=== PATIENT | female | born 1940 | race Caucasian/White ===

== ENCOUNTER 2021-02-04 11:31 | Day surgery (SDC) | payer MEDICARE ==
[~2021-02-04] VITALS: Ht 170.2 cm; Wt 100.0 kg
[2021-02-04 12:12] LABS: BASOPHILS 1.5 % (0-2); EOSINOPHILS 2.3 % (0-7); HEMATOCRIT 39.8 % (36.0-48.0); HEMOGLOBIN 12.7 g/dL (12-16); LYMPHOCYTES 26.7 % (15-50); MCH 27.2 pg (26.0-34.0); MCHC 31.8 g/dL (31.0-37.0); MCV 85.4 fL (80.0-100.0); MEAN PLATELET VOLUME 7.7 fL (7.4-10.4); MONOCYTES 6.6 % (2-11); NEUTROPHILS 62.9 % (40-80); PLATELET COUNT 514 10x3/uL (130-400); RBC 4.66 10x6/uL (4.00-5.40); WBC 9.8 10x3/uL (4.8-10.8)
[2021-02-04 12:17] LABS: ANION GAP 13.7 mmol/L (8-16); CALCIUM 9.4 mg/dL (8.5-10.1); CARBON DIOXIDE 27.5 mmol/L (21.0-32.0); POTASSIUM - SERUM 4.2 mmol/L (3.5-5.1)
[2021-02-04] MEDS ORDERED: CARAFATE1 G PO (15:49)
[2021-02-04] MEDS ORDERED: LEVOTHYROXINE100 MCG PO (15:49)
[2021-02-04] MEDS ORDERED: CELEXA40 MG PO (15:50)
[2021-02-04] MEDS ORDERED: HYDROCODONE-AC1 EAC2 PO (15:50)
[2021-02-04] MEDS ORDERED: METOLAZONE5 MG PO (15:50)
[2021-02-04] MEDS ORDERED: BREO ELLIPTA 11 EACH INH (15:50)
[2021-02-04] MEDS ORDERED: GABAPENTIN300 MG PO (15:50)
[2021-02-04] MEDS ORDERED: PROTONIX40 MG PO (15:50)
[2021-02-04] MEDS ORDERED: ALBUTEROL SULF8.5 GM INH (15:51)
[2021-02-04] MEDS ORDERED: LASIX80 MG PO (15:51)
[2021-02-04] MEDS ORDERED: SINGULAIR10 MG PO (15:51)
[2021-02-04] MEDS ORDERED: MYCOSTATIN 15 G15 GM TOPICAL (15:51)
[2021-02-04] MEDS ORDERED: GLUCOPHAGE850 MG PO (15:51)
[2021-02-04 16:05] VITALS: BP 149/59; Ht 170.2 cm; Wt 100.0 kg
--- NOTE | 2021-02-04 18:56 | NUR ---
1730 RECEIVED FROM PROCEDURE TO PHASE 11 RECOVERY. IV INFUSING WELL, PT AWAKE, ALERT. LIQUIDS GIVEN 1745 PATIENT WITHOUT CO VOICED. DAUGHTER AT BEDSIDE. TOLERATING LIQUIDS WELL, DENIES NAUSEA. 1810 IV REMOMVED WITH CATH INTACT. DISCHARGE INSTRUCTION REVIEWED W PATIENT AND DAUGHTER, VERBALIZED UNDERSTANDING.
--- NOTE | 2021-02-05 09:09 | OP ---
PATIENT NAME: AIRAM DURAND MEDICAL RECORD: [id number] :38 LOCATION:[facility] ADMISSION DATE: SURGEON: ANDREA LUNDBERG MD DATE OF OPERATION: 02/04/2021 PROCEDURE: Upper endoscopy. PREOPERATIVE DIAGNOSIS: Dysphagia. MEDICATION: Propofol per anesthesia. Upper endoscopy was performed. The endoscope was advanced through the mouth and advanced to the second part of the duodenum. The proximal and mid esophagus were normal. In the distal esophagus was an esophageal stricture. This was dilated with an 18, 19, 20 mm balloon. In the gastric body was erythema consistent with gastritis. Random gastric biopsies were taken. The duodenum was normal. The patient tolerated the procedure well. FINAL DIAGNOSES: Esophageal stricture dilated with an 18, 19, 20 mm balloon. Gastritis, biopsies taken. Duodenum normal. PLAN: Check histology results. Advance diet. Return to GI office. Of note, this patient's medication list states she is on Protonix; however, she denies that she is on this. Therefore, I will write a prescription today and send it with her. TRANSINT:[id number] Voice Confirmation ID: [id number] DOCUMENT ID: [id number] ANDREA LUNDBERG MD at 0909 CC: [id number] DICTATION DATE: 02/04/211715 [employer] MACHINE OPERATOR: 02/04/211926 [facility] [place] 02/04/21 [facility] [address] [place] [address]
== END 2021-02-04 18:10 | disposition home or self-care (01) ==
LOC: D.OPS 11:31
PROVIDERS: Anesthesiology; ATTEND Internal Medicine Gastroenterology
DX: R13.10 Dysphagia, unspecified (principal); K22.2 Esophageal obstruction; J44.9 Chronic obstructive pulmonary disease, unspecified; E11.9 Type 2 diabetes mellitus without complications; M79.7 Fibromyalgia; E03.9 Hypothyroidism, unspecified